=== PATIENT | female | born 1995 | race Caucasian/White ===

== ENCOUNTER 2021-09-04 03:36 | Emergency (ER) | payer OTHER ==
[~2021-09-04] VITALS: Ht 167.6 cm; Wt 129.1 kg
[2021-09-04] MEDS ORDERED: POVIDONE-IODINE 10% 120 ML SOLUTION TP ONE (07:00)
[2021-09-04] MEDS ORDERED: LIDOCAINE 1% 10 ML VIAL SQ ONE (08:00)
[2021-09-04] MEDS ORDERED: NEOMYCIN/BACITRACIN/POLYMYXIN B OINTMENT PACKET TP ONE (08:00)
[2021-09-04] MEDS ORDERED: ERYT-160 PO (10:11)
[2021-09-04] MEDS ORDERED: ACET-66 PO (10:11)
[2021-09-04] MEDS ORDERED: PERTUSS(ACELL),DIPH,TET VAC/PF 0.5 ML SYRINGE IM. ONE (10:15)
[2021-09-04 11:00] VITALS: BP 112/71
== END 2021-09-04 11:03 | disposition home or self-care (01) ==
LOC: EMS 03:36
DX: S56.127A Laceration of flexor muscle, fascia and tendon of right little finger at forearm level, initial encounter (principal); S61.214A Laceration without foreign body of right ring finger without damage to nail, initial encounter; Z88.1 Allergy status to other antibiotic agents; Z88.8 Allergy status to other drugs, medicaments and biological substances; Z91.040 Latex allergy status; W25.XXXA Contact with sharp glass, initial encounter; Y93.89 Activity, other specified; Y92.89 Other specified places as the place of occurrence of the external cause; Y99.8 Other external cause status
CPT/HCPCS: 99283; 73130; 90715; 90471; 12002; J3490

== ENCOUNTER 2021-10-12 13:03 | Emergency (ER) | payer OTHER ==
[~2021-10-12] VITALS: Ht 167.6 cm; Wt 131.2 kg
[~2021-10-12 13:03] MED LIST: ACET-66 PO; ERYT-160 PO
[2021-10-12] MEDS ORDERED: ACETAMINOPHEN 500 MG TABLET PO ONE (15:00)
[2021-10-12 15:24] VITALS: BP 118/78
[2021-10-12] MEDS ORDERED: ACET-3385 PO (17:19)
== END 2021-10-12 17:25 | disposition home or self-care (01) ==
LOC: EMS 13:05
DX: S02.2XXA Fracture of nasal bones, initial encounter for closed fracture (principal); S09.90XA Unspecified injury of head, initial encounter; F12.90 Cannabis use, unspecified, uncomplicated; Z91.040 Latex allergy status; Z88.6 Allergy status to analgesic agent; Z88.1 Allergy status to other antibiotic agents; Z98.890 Other specified postprocedural states; Y04.8XXA Assault by other bodily force, initial encounter; Y93.89 Activity, other specified; Y92.89 Other specified places as the place of occurrence of the external cause; Y99.8 Other external cause status
CPT/HCPCS: 70450; 70486; 99284

== ENCOUNTER 2022-01-19 19:00 | Emergency (ER) | payer OTHER ==
[~2022-01-19] VITALS: Ht 167.6 cm; Wt 130.2 kg
[~2022-01-19 19:00] MED LIST changes: +ACET-3385 PO; -ACET-66 PO; -ERYT-160 PO
[2022-01-19] MEDS ORDERED: ACETAMINOPHEN 500 MG TABLET PO ONE (20:00)
[2022-01-19 21:25] VITALS: BP 124/69
== END 2022-01-19 21:45 | disposition home or self-care (01) ==
LOC: EMS 19:01
DX: S20.219A Contusion of unspecified front wall of thorax, initial encounter (principal); F12.90 Cannabis use, unspecified, uncomplicated; Z91.040 Latex allergy status; Z88.6 Allergy status to analgesic agent; Z88.8 Allergy status to other drugs, medicaments and biological substances; W20.8XXA Other cause of strike by thrown, projected or falling object, initial encounter; Y93.89 Activity, other specified; Y92.89 Other specified places as the place of occurrence of the external cause; Y99.8 Other external cause status
CPT/HCPCS: 71045; 93005; 99284

== ENCOUNTER 2022-02-01 14:18 | Emergency (ER) | payer OTHER ==
[~2022-02-01] VITALS: Ht 167.6 cm; Wt 133.6 kg
[2022-02-01] MEDS ORDERED: PNV1TABL77 PO (14:31)
[2022-02-01 15:37] LABS: BASOPHILS % (AUTO) 1.1 % (0.0-2.0); EOSINOPHILS % (AUTO) 0.8 % (1.0-6.0); HEMATOCRIT 39.9 % (36-46); HEMOGLOBIN 12.8 g/dL (12.0-16.0); LYMPHOCYTES # (AUTO) 2.4 K/uL (1.0-4.8); LYMPHOCYTES % (AUTO) 21.5 % (22.0-44.0); MEAN CORPUSCULAR HEMOGLOBIN 27.8 pg (26.0-34.0); MEAN CORPUSCULAR HGB CONC 32.1 G/dL (31.0-37.0); MEAN CORPUSCULAR VOLUME 87 fL (80-100); MONOCYTES # (AUTO) 0.6 K/uL (0.1-1.0); MONOCYTES % (AUTO) 5.4 % (2.0-9.0); NEUTROPHILS # (AUTO) 7.8 K/uL (1.8-7.7); NEUTROPHILS % (AUTO) 71.2 % (40.0-70.0); PLATELET COUNT (AUTO) 302 K/uL (150-450); RED BLOOD CELL COUNT(AUTO) 4.61 MIL/uL (4.00-5.20); RED CELL DISTRIBUTION WIDTH 13.3 % (11.5-14.5)
[2022-02-01] MEDS ORDERED: SODIUM CHLORIDE 0.9% 1,000 ML IV ONE (20:45)
[2022-02-02 01:12] VITALS: BP 132/74
== END 2022-02-02 01:12 | disposition home or self-care (01) ==
LOC: EMS 14:24
DX: O03.9 Complete or unspecified spontaneous abortion without complication (principal); Z98.890 Other specified postprocedural states; Z87.891 Personal history of nicotine dependence
CPT/HCPCS: 84702; 85025; 86900; 86901; 36415; 76817; 76801; 87491; 87591; 99285; 36430; J2788

== ENCOUNTER 2025-02-10 11:45 | Emergency (ER) | payer OTHER ==
[~2025-02-10] VITALS: Ht 167.6 cm; Wt 159.1 kg
[~2025-02-10 11:45] MED LIST changes: -ACET-3385 PO; +PNV1TABL77 PO
[2025-02-10] MEDS ORDERED: CHOL400T56 PO (11:47)
[2025-02-10] MEDS ORDERED: MECO10005 PO (11:47)
[2025-02-10] MEDS ORDERED: FERR325T27 PO (11:47)
[2025-02-10 11:49] VITALS: BP 130/74; PULSE 81; RESP 18; TEMP 98.6; O2SAT 97
[2025-02-10] MEDS ORDERED: CLIN300C58 PO (13:43)
[2025-02-10] MEDS: ACETAMINOPHEN 500 MG TABLET PO ONE (14:05)
== END 2025-02-10 14:06 | disposition home or self-care (01) ==
LOC: EMS 11:45
DX: K04.7 Periapical abscess without sinus (principal); Z87.891 Personal history of nicotine dependence; Z98.890 Other specified postprocedural states; Z88.1 Allergy status to other antibiotic agents; Z88.6 Allergy status to analgesic agent; Z91.040 Latex allergy status; Z87.59 Personal history of other complications of pregnancy, childbirth and the puerperium; Z79.899 Other long term (current) drug therapy
CPT/HCPCS: 99283